=== PATIENT | female | born 1995 | race Caucasian/White ===

== ENCOUNTER → 2017-01-02 | Outpatient (CLI) | payer OTHER ==
[~2017-01-02] MED LIST: FLUO20CA35 PO
== END | disposition home or self-care (01) ==
LOC: C.PAPS 15:05
PROVIDERS: ATTEND Obstetrics & Gynecology
DX: Z12.4 Encounter for screening for malignant neoplasm of cervix (principal); N85.8 Other specified noninflammatory disorders of uterus

== ENCOUNTER → 2017-01-02 | Outpatient (CLI) | payer OTHER ==
[2017-01-02 17:04] LABS: PROLACTIN 6.6 ng/mL
== END | disposition home or self-care (01) ==
LOC: C.LAB 15:05
PROVIDERS: ATTEND Obstetrics & Gynecology
DX: N92.6 Irregular menstruation, unspecified (principal)

== ENCOUNTER → 2017-01-31 | Outpatient (CLI) | payer OTHER | END | disposition home or self-care (01) | LOC: C.PATHSPEC 01-26 14:56 | PROVIDERS: ATTEND Obstetrics & Gynecology | DX: R87.613 High grade squamous intraepithelial lesion on cytologic smear of cervix (HGSIL) (principal) ==

== ENCOUNTER → 2017-01-31 | Outpatient (CLI) | payer OTHER | END | disposition home or self-care (01) | LOC: C.PAPS 08:40 | PROVIDERS: ATTEND Obstetrics & Gynecology | DX: R87.613 High grade squamous intraepithelial lesion on cytologic smear of cervix (HGSIL) (principal) ==